=== PATIENT | male | born 1990 | race Caucasian/White ===

== ENCOUNTER 2020-05-28 17:39 | Inpatient (IN) | payer MEDICAID, OTHER ==
[~2020-05-28] VITALS: Ht 172.7 cm; Wt 107.2 kg
[~2020-05-28 17:39] MED LIST: ARIP15TA2 PO; ATOM80CA PO; OXCA300T57 PO
[2020-05-28 18:53] LABS: EOSINOPHILS % (AUTO) 6.7 % (1.0-6.0); HEMATOCRIT 43.2 % (41-53); HEMOGLOBIN 14.8 g/dL (13.5-17.5); LYMPHOCYTES % (AUTO) 25.8 % (22.0-44.0); MEAN CORPUSCULAR HGB CONC 34.2 G/dL (31.0-37.0); MEAN CORPUSCULAR VOLUME 88 fL (80-100); MONOCYTES # (AUTO) 0.8 K/uL (0.1-1.0); MONOCYTES % (AUTO) 9.9 % (2.0-9.0); NEUTROPHILS # (AUTO) 4.3 K/uL (1.8-7.7); NEUTROPHILS % (AUTO) 56.6 % (40.0-70.0); PLATELET COUNT (AUTO) 270 K/uL (150-450); RED BLOOD CELL COUNT(AUTO) 4.93 MIL/uL (4.50-5.90); RED CELL DISTRIBUTION WIDTH 12.6 % (11.5-14.5)
[2020-05-28 19:02] LABS: ANION GAP 2 mmol/L (8-16); CALCIUM, TOTAL 8.6 mg/dL (8.8-10.5); CARBON DIOXIDE 30 mmol/L (22-29); CHLORIDE 103 mmol/L (98-107); CREATININE 1.01 mg/dL (0.60-1.30); GLOMERULAR FILTR. RATE CALC > 60 mL/min (>60); GLUCOSE,RANDOM 102 mg/dL (70-110); POTASSIUM 3.9 mmol/L (3.5-5.1); SODIUM SERUM 135 mmol/L (136-145); UREA NITROGEN, BLOOD 9 mg/dL (7-18)
[2020-05-28 19:10] LABS: ALANINE AMINOTRANSFERASE 174 U/L (12-78); ALBUMIN 3.1 g/dL (3.4-5.0); ALKALINE PHOSPHATASE 71 U/L (46-116); ASPARTATE AMINOTRANSFERASE 58 U/L (15-37); BILIRUBIN,TOTAL 0.3 mg/dL (0.1-1.0); TOTAL PROTEIN, SERUM 6.7 g/dL (6.4-8.2)
[2020-05-28 19:27] LABS: COVID AG,FIA SOURCE NASOPHARYNGEAL
[2020-05-28 19:34] LABS: AMPHET/METH SCREEN,URINE NEGATIVE (NEGATIVE); BARBITURATE SCREEN, URINE NEGATIVE (NEGATIVE); BENZODIAZEPINES SCREEN,URINE NEGATIVE (NEGATIVE); CANNABINOID SCREEN,URINE POSITIVE (NEGATIVE); COCAINE SCREEN,URINE NEGATIVE (NEGATIVE); METHADONE SCREEN, URINE NEGATIVE (NEGATIVE); OPIATE SCREEN,URINE NEGATIVE (NEGATIVE)
[2020-05-28 19:40] LABS: PHENCYCLIDINE SCREEN,URINE NEGATIVE (NEGATIVE)
[2020-05-28] MEDS ORDERED: LORazepam 2 MG TABLET PO PRN (20:45)
[2020-05-28] MEDS ORDERED: HALOPERIDOL 5 MG TABLET PO PRN (20:45)
[2020-05-28] MEDS ORDERED: ZOLPIDEM TARTRATE 10 MG TABLET PO PRN (20:45)
[2020-05-29 01:20] VITALS: BP 136/89
[2020-05-29] MEDS ORDERED: INFLUENZA VIRUS VACCINE QVS 2020-21 (6MO+)/PF 60 MCG/0.5 ML SYRINGE IM ONE (03:45)
[2020-05-29 08:09] LABS: ALANINE AMINOTRANSFERASE 164 U/L (12-78); ALBUMIN 2.9 g/dL (3.4-5.0); ALKALINE PHOSPHATASE 73 U/L (46-116); ANION GAP 7 mmol/L (8-16); ASPARTATE AMINOTRANSFERASE 57 U/L (15-37); BILIRUBIN,TOTAL 0.2 mg/dL (0.1-1.0); CALCIUM, TOTAL 8.5 mg/dL (8.8-10.5); CARBON DIOXIDE 28 mmol/L (22-29); CHLORIDE 105 mmol/L (98-107); CHOL/HDL RATIO 2.8 (4.2-7.3); CHOLESTEROL 168 mg/dL (131-200); CREATININE 0.96 mg/dL (0.60-1.30); FREE T4 (FREE THYROXINE) 0.93 ng/dL (0.76-1.46); GLOMERULAR FILTR. RATE CALC > 60 mL/min (>60); GLUCOSE,RANDOM 104 mg/dL (70-110); HDL CHOLESTEROL 59 mg/dL (40-60); LDL CHOL (CALC.) 81 mg/dL (0-130); POTASSIUM 4.3 mmol/L (3.5-5.1); SODIUM SERUM 140 mmol/L (136-145); THYROID STIMULATING HORMONE 1.33 uIU/mL (0.36-3.74); TRIGLYCERIDES 142 mg/dL (15-150); UREA NITROGEN, BLOOD 11 mg/dL (7-18)
[2020-05-29] MEDS ORDERED: IBUPROFEN 400 MG TABLET PO PRN (08:15)
[2020-05-29] MEDS ORDERED: NICOTINE 14 MG/24 HOUR PATCH TD PRN (08:15)
[2020-05-29] MEDS ORDERED: ONDANSETRON HCL 4 MG TABLET PO PRN (08:15)
[2020-05-29] MEDS ORDERED: CloNIDine HCL 0.1 MG TABLET PO PRN (08:15)
[2020-05-29] MEDS ORDERED: LOPERAMIDE HCL 2 MG CAPSULE PO PRN (08:15)
[2020-05-29] MEDS ORDERED: GuaiFENesin/D-METHORPHAN [SUGAR-FREE] 200-20MG/10 ML SYRUP UDCUP PO PRN (08:15)
[2020-05-29] MEDS ORDERED: ALBUTEROL SULFATE HFA 90 MCG/PUFF 8 GM INHALER IH PRN (08:15)
[2020-05-29] MEDS ORDERED: PETROLATUM,WHITE 28 GM JELLY TP PRN (08:15)
[2020-05-29] MEDS ORDERED: ACETAMINOPHEN 325 MG TABLET PO PRN (08:15)
[2020-05-29] MEDS ORDERED: MAGNESIUM HYDROXIDE SUSPENSION 30 ML UDCUP PO PRN (08:15)
[2020-05-29] MEDS ORDERED: MAG HYDROX/AL HYDROX/SIMETH ES 30 ML SUSPENSION UDCUP PO PRN (08:15)
[2020-05-29] MEDS ORDERED: DOCUSATE SODIUM 100 MG CAPSULE PO PRN (08:15)
[2020-05-29 08:25] VITALS: BP 134/69
[2020-05-29] MEDS: OXcarbazepine 300 MG TABLET PO SCH (15:43)
[2020-05-29 16:04] VITALS: BP 112/76
[2020-05-30] VITALS: BP 114/67
[2020-05-30] MEDS: OXcarbazepine 300 MG TABLET PO SCH ×2 (09:05→15:57)
[2020-05-30] MEDS: ATOMOXETINE HCL 40 MG CAPSULE PO SCH (09:05)
[2020-05-30] MEDS: ARIPiprazole 15 MG TABLET PO SCH (09:05)
[2020-05-30 09:19] VITALS: BP 127/77
[2020-05-30 16:29] VITALS: BP 119/67
[2020-05-31 05:04] VITALS: BP 121/68
[2020-05-31] MEDS: ATOMOXETINE HCL 40 MG CAPSULE PO SCH (08:38)
[2020-05-31] MEDS: OXcarbazepine 300 MG TABLET PO SCH (08:38)
[2020-05-31] MEDS: ARIPiprazole 15 MG TABLET PO SCH (08:38)
[2020-05-31 08:44] VITALS: BP 136/82
[2020-05-31] MEDS ORDERED: OXCA300T57 PO (10:54)
== END 2020-05-31 12:10 | disposition home or self-care (01) | DRG 753 ==
LOC: EMS 17:39 → B2S 20:32
PROVIDERS: ADMIT Psychiatry & Neurology Child & Adolescent Psychiatry; ATTEND Psychiatry & Neurology Child & Adolescent Psychiatry
DX: F31.4 Bipolar disorder, current episode depressed, severe, without psychotic features (principal); R45.851 Suicidal ideations; Z59.0 Homelessness; F41.9 Anxiety disorder, unspecified; E87.1 Hypo-osmolality and hyponatremia; F19.10 Other psychoactive substance abuse, uncomplicated; F90.9 Attention-deficit hyperactivity disorder, unspecified type; F17.210 Nicotine dependence, cigarettes, uncomplicated; Z20.828 Contact with and (suspected) exposure to other viral communicable diseases
CPT/HCPCS: 83036; 84439; 84443; 87426; G0480

== ENCOUNTER 2020-07-18 08:29 | Inpatient (IN) | payer MEDICAID, OTHER ==
[~2020-07-18] VITALS: Ht 172.7 cm; Wt 103.4 kg
[2020-07-18 14:42] LABS: COVID AG,FIA SOURCE NASOPHARYNGEAL
[2020-07-18 20:15] VITALS: BP 134/78
[2020-07-18] MEDS ORDERED: LORazepam 2 MG TABLET PO PRN (20:45)
[2020-07-18] MEDS ORDERED: HALOPERIDOL 5 MG TABLET PO PRN (20:45)
[2020-07-18] MEDS ORDERED: INFLUENZA VIRUS VACCINE QVS 2020-21 (6MO+)/PF 60 MCG/0.5 ML SYRINGE IM ONE (22:45)
[2020-07-18 23:36] LABS: APPEARANCE,URINE CLEAR (CLEAR); BILIRUBIN,URINE NEGATIVE (NEGATIVE); GLUCOSE, URINE (UA) NEGATIVE (NEGATIVE); KETONES,URINE NEGATIVE (NEGATIVE); LEUKOCYTE ESTERASE ,URINE NEGATIVE (NEGATIVE); NITRATE,URINE NEGATIVE (NEGATIVE); OCCULT BLOOD,URINE NEGATIVE (NEGATIVE); PH,URINE 6.5 (5.0-8.0); PROTEIN,URINE NEGATIVE (NEGATIVE); UROBILINOGEN,URINE 0.2 mg/dL (<=1.0)
[2020-07-18 23:48] LABS: AMPHET/METH SCREEN,URINE POSITIVE (NEGATIVE); BARBITURATE SCREEN, URINE NEGATIVE (NEGATIVE); BENZODIAZEPINES SCREEN,URINE NEGATIVE (NEGATIVE); CANNABINOID SCREEN,URINE POSITIVE (NEGATIVE); COCAINE SCREEN,URINE NEGATIVE (NEGATIVE); METHADONE SCREEN, URINE NEGATIVE (NEGATIVE); OPIATE SCREEN,URINE NEGATIVE (NEGATIVE); PHENCYCLIDINE SCREEN,URINE NEGATIVE (NEGATIVE)
[2020-07-19 07:19] LABS: BASOPHILS % (AUTO) 0.5 % (0.0-2.0); EOSINOPHILS % (AUTO) 2.8 % (1.0-6.0); HEMATOCRIT 45.1 % (41-53); HEMOGLOBIN 15.4 g/dL (13.5-17.5); LYMPHOCYTES # (AUTO) 2.1 K/uL (1.0-4.8); LYMPHOCYTES % (AUTO) 37.5 % (22.0-44.0); MEAN CORPUSCULAR HEMOGLOBIN 29.8 pg (26.0-34.0); MEAN CORPUSCULAR HGB CONC 34.1 G/dL (31.0-37.0); MEAN CORPUSCULAR VOLUME 87 fL (80-100); MONOCYTES # (AUTO) 0.5 K/uL (0.1-1.0); MONOCYTES % (AUTO) 8.2 % (2.0-9.0); NEUTROPHILS # (AUTO) 2.9 K/uL (1.8-7.7); PLATELET COUNT (AUTO) 264 K/uL (150-450); RED BLOOD CELL COUNT(AUTO) 5.16 MIL/uL (4.50-5.90); RED CELL DISTRIBUTION WIDTH 12.8 % (11.5-14.5)
[2020-07-19] MEDS ORDERED: DOCUSATE SODIUM 100 MG CAPSULE PO PRN (07:30)
[2020-07-19] MEDS ORDERED: MAG HYDROX/AL HYDROX/SIMETH ES 30 ML SUSPENSION UDCUP PO PRN (07:30)
[2020-07-19] MEDS ORDERED: CloNIDine HCL 0.1 MG TABLET PO PRN (07:30)
[2020-07-19] MEDS ORDERED: PETROLATUM,WHITE 28 GM JELLY TP PRN (07:30)
[2020-07-19] MEDS ORDERED: GuaiFENesin/D-METHORPHAN [SUGAR-FREE] 200-20MG/10 ML SYRUP UDCUP PO PRN (07:30)
[2020-07-19] MEDS ORDERED: LOPERAMIDE HCL 2 MG CAPSULE PO PRN (07:30)
[2020-07-19] MEDS ORDERED: ALBUTEROL SULFATE HFA 90 MCG/PUFF 8 GM INHALER IH PRN (07:30)
[2020-07-19] MEDS ORDERED: MAGNESIUM HYDROXIDE SUSPENSION 30 ML UDCUP PO PRN (07:30)
[2020-07-19] MEDS ORDERED: ONDANSETRON HCL 4 MG TABLET PO PRN (07:30)
[2020-07-19] MEDS ORDERED: NICOTINE 14 MG/24 HOUR PATCH TD PRN (07:30)
[2020-07-19 07:36] LABS: ALANINE AMINOTRANSFERASE 43 U/L (12-78); ALBUMIN 3.3 g/dL (3.4-5.0); ALKALINE PHOSPHATASE 61 U/L (46-116); ANION GAP 6 mmol/L (8-16); ASPARTATE AMINOTRANSFERASE 24 U/L (15-37); BILIRUBIN,TOTAL 0.3 mg/dL (0.1-1.0); CARBON DIOXIDE 26 mmol/L (22-29); CHLORIDE 103 mmol/L (98-107); CREATININE 0.82 mg/dL (0.60-1.30); GLOMERULAR FILTR. RATE CALC > 60 mL/min (>60); GLUCOSE,RANDOM 93 mg/dL (70-110); POTASSIUM 4.5 mmol/L (3.5-5.1); SODIUM SERUM 135 mmol/L (136-145); TOTAL PROTEIN, SERUM 6.7 g/dL (6.4-8.2); UREA NITROGEN, BLOOD 14 mg/dL (7-18)
[2020-07-19 08:00] VITALS: BP 90/40
[2020-07-19 09:00] VITALS: BP 143/89
[2020-07-19] MEDS: OXcarbazepine 300 MG TABLET PO SCH ×2 (09:00→17:00)
[2020-07-19] MEDS: ARIPiprazole 15 MG TABLET PO SCH (09:00)
[2020-07-19] MEDS: ATOMOXETINE HCL 40 MG CAPSULE PO SCH (09:00)
[2020-07-19 17:00] VITALS: BP 134/84
[2020-07-19] MEDS: ZOLPIDEM TARTRATE 10 MG TABLET PO PRN (22:38)
[2020-07-20 08:00] VITALS: BP 124/61
[2020-07-20] MEDS: ATOMOXETINE HCL 40 MG CAPSULE PO SCH (09:00)
[2020-07-20] MEDS: ARIPiprazole 15 MG TABLET PO SCH (09:00)
[2020-07-20] MEDS: OXcarbazepine 300 MG TABLET PO SCH ×2 (09:00→17:00)
[2020-07-20 16:00] VITALS: BP 120/62
[2020-07-20 16:39] VITALS: BP 120/62
[2020-07-21 08:30] VITALS: BP 111/64
[2020-07-21] MEDS: OXcarbazepine 300 MG TABLET PO SCH ×3 (09:00→16:01)
[2020-07-21] MEDS: ATOMOXETINE HCL 40 MG CAPSULE PO SCH ×2 (09:00→10:24)
[2020-07-21] MEDS: ARIPiprazole 15 MG TABLET PO SCH ×2 (09:00→10:23)
[2020-07-21 16:15] VITALS: BP 127/88
[2020-07-22] MEDS: ARIPiprazole 15 MG TABLET PO SCH (08:15)
[2020-07-22] MEDS: OXcarbazepine 300 MG TABLET PO SCH ×2 (08:16→16:32)
[2020-07-22 08:20] VITALS: BP 134/81
[2020-07-22] MEDS: ATOMOXETINE HCL 40 MG CAPSULE PO SCH (08:20)
[2020-07-22 16:18] VITALS: BP 134/88
[2020-07-23] MEDS: OXcarbazepine 300 MG TABLET PO SCH ×2 (08:34→16:49)
[2020-07-23] MEDS: ARIPiprazole 15 MG TABLET PO SCH (08:34)
[2020-07-23 08:38] VITALS: BP 104/68
[2020-07-23] MEDS: ATOMOXETINE HCL 40 MG CAPSULE PO SCH (08:39)
[2020-07-23 16:19] VITALS: BP 108/51
[2020-07-24] MEDS: ZOLPIDEM TARTRATE 10 MG TABLET PO PRN (00:14)
[2020-07-24 00:25] VITALS: BP 140/90
[2020-07-24 08:05] VITALS: BP 115/69
[2020-07-24] MEDS: OXcarbazepine 300 MG TABLET PO SCH ×2 (09:00→16:46)
[2020-07-24] MEDS: ATOMOXETINE HCL 40 MG CAPSULE PO SCH (09:00)
[2020-07-24] MEDS: ARIPiprazole 15 MG TABLET PO SCH (09:00)
[2020-07-24 16:00] VITALS: BP 133/84
[2020-07-24] MEDS: IBUPROFEN 400 MG TABLET PO PRN (18:17)
[2020-07-24 18:20] VITALS: BP 138/88
[2020-07-25] MEDS: ATOMOXETINE HCL 40 MG CAPSULE PO SCH (09:00)
[2020-07-25] MEDS: OXcarbazepine 300 MG TABLET PO SCH ×2 (09:00→17:00)
[2020-07-25] MEDS: ARIPiprazole 15 MG TABLET PO SCH (09:00)
[2020-07-25 16:00] VITALS: BP 114/55
[2020-07-25] MEDS: DiphenhydrAMINE HCL 25 MG CAPSULE PO PRN (23:05)
[2020-07-26] MEDS: OXcarbazepine 300 MG TABLET PO SCH ×2 (09:00→17:00)
[2020-07-26] MEDS: ATOMOXETINE HCL 40 MG CAPSULE PO SCH (09:00)
[2020-07-26] MEDS: ARIPiprazole 15 MG TABLET PO SCH (09:00)
[2020-07-26] MEDS ORDERED: LORazepam 2 MG/ML VIAL ONE (22:48)
[2020-07-26] MEDS ORDERED: DiphenhydrAMINE HCL 50 MG/ML VIAL ONE (22:48)
[2020-07-26] MEDS ORDERED: HALOPERIDOL LACTATE 5 MG/ML VIAL ONE (22:48)
[2020-07-26] MEDS ORDERED: LORazepam 2 MG/ML VIAL IM ONE (23:00)
[2020-07-26] MEDS ORDERED: HALOPERIDOL LACTATE 5 MG/ML VIAL IM ONE (23:00)
[2020-07-26] MEDS ORDERED: DiphenhydrAMINE HCL 50 MG/ML VIAL IM ONE (23:00)
[2020-07-27] MEDS: IBUPROFEN 400 MG TABLET PO PRN ×2 (00:59→17:46)
[2020-07-27 08:00] VITALS: BP 138/74
[2020-07-27] MEDS: ATOMOXETINE HCL 40 MG CAPSULE PO SCH (08:32)
[2020-07-27] MEDS: ARIPiprazole 15 MG TABLET PO SCH (08:32)
[2020-07-27] MEDS: OXcarbazepine 300 MG TABLET PO SCH ×2 (08:32→17:00)
[2020-07-27 16:30] VITALS: BP 118/81
[2020-07-27] MEDS: ACETAMINOPHEN 325 MG TABLET PO PRN (20:21)
[2020-07-28 08:00] VITALS: BP 147/83
[2020-07-28] MEDS: ATOMOXETINE HCL 40 MG CAPSULE PO SCH (08:27)
[2020-07-28] MEDS: OXcarbazepine 300 MG TABLET PO SCH ×2 (08:27→17:00)
[2020-07-28] MEDS: ARIPiprazole 15 MG TABLET PO SCH (08:27)
[2020-07-28 14:00] VITALS: BP 132/70
[2020-07-28] MEDS: IBUPROFEN 400 MG TABLET PO PRN (14:00)
[2020-07-28 16:00] VITALS: BP 129/68
[2020-07-28] MEDS: DiphenhydrAMINE HCL 25 MG CAPSULE PO PRN (21:59)
[2020-07-29] MEDS: IBUPROFEN 400 MG TABLET PO PRN (04:03)
[2020-07-29] MEDS: ACETAMINOPHEN 325 MG TABLET PO PRN (05:36)
[2020-07-29 08:00] VITALS: BP 137/83
[2020-07-29] MEDS: ATOMOXETINE HCL 40 MG CAPSULE PO SCH (09:00)
[2020-07-29] MEDS: OXcarbazepine 300 MG TABLET PO SCH (09:00)
[2020-07-29] MEDS: ARIPiprazole 15 MG TABLET PO SCH (09:00)
== END 2020-07-29 11:40 | disposition home or self-care (01) | DRG 753 ==
LOC: EMS 08:46 → B3A 16:07 → 3EI 16:07 → UNDOADMIN 16:07 → 3EC 07-26 22:55
PROVIDERS: ADMIT Psychiatry & Neurology Child & Adolescent Psychiatry; ATTEND Psychiatry & Neurology Child & Adolescent Psychiatry
DX: F31.30 Bipolar disorder, current episode depressed, mild or moderate severity, unspecified (principal); F41.9 Anxiety disorder, unspecified; F60.3 Borderline personality disorder; F64.9 Gender identity disorder, unspecified; E87.1 Hypo-osmolality and hyponatremia; Z20.822 Contact with and (suspected) exposure to COVID-19; F10.10 Alcohol abuse, uncomplicated; F12.10 Cannabis abuse, uncomplicated; F15.10 Other stimulant abuse, uncomplicated; F90.9 Attention-deficit hyperactivity disorder, unspecified type; R45.851 Suicidal ideations; F17.210 Nicotine dependence, cigarettes, uncomplicated; R03.0 Elevated blood-pressure reading, without diagnosis of hypertension; Z59.0 Homelessness; Z28.82 Immunization not carried out because of caregiver refusal; Z79.899 Other long term (current) drug therapy
CPT/HCPCS: 80307; 87426; 99285; G0480; J1200; J1630; J2060; Q0162